=== PATIENT | male | born 1965 | race Caucasian/White ===

== ENCOUNTER 2019-07-03 06:30 | Emergency (ER) | payer BC ==
[2019-07-03] MEDS ORDERED: NS 0.9% 1000 ML** 1,000 ML IV ONE (06:46)
[2019-07-03] MEDS ORDERED: Morphine 4 MG/ML VIAL (1 ml) 4 MG/ML VIAL IV ONE ×3 (06:46→09:34)
[2019-07-03] MEDS ORDERED: Iodixanol* (CONTRAST) 320 MG/ML 100 ML SDV IV ONE (07:02)
[2019-07-03 07:14] LABS: ABS Basophils 0.1 10^3/ul (0-0.2); ABS Eosinophils 0.2 10^3/ul (0-0.6); ABS Lymphocytes 3.1 10^3/ul (1.0-4.8); ABS Monocytes 0.7 10^3/ul (0-0.8); ABS Neutrophils 3.5 10^3/ul (1.5-7.7); Eosinophil % 2.9 %; Hematocrit 44 % (42-52); Hemoglobin 15.2 g/dL (14.0-18.0); Lymphocyte % 41.1 %; Mean Corpuscular HGB Conc 35 g/dL (31-36); Mean Corpuscular Hemoglobin 31 pg (27-31); Mean Corpuscular Volume 89 fL (80-94); Mean Platelet Volume 8.1 fL (7.4-10.4); Nucleated Red Blood Cells % 0.1; Platelet Count 255 10^3/uL (150-450); Red Blood Count 4.94 10^6 /uL (4.18-5.48); Red Cell Distribution Width 13 % (10-15); White Blood Count 7.5 10^3/uL (3.5-10.8)
[2019-07-03 07:20] LABS: INR 0.93 (0.82-1.09)
[2019-07-03 07:25] LABS: Albumin 4.3 g/dL (3.2-5.2); BUN/Creatinine Ratio 13.4 (8-20); Calcium 8.9 mg/dL (8.6-10.3); EGFR African American 82.4 (>60); EGFR Non-African American 68.1 (>60); Globulin 2.1 g/dL (2-4); Total Bilirubin 0.3 mg/dL (0.2-1.0); Total Protein 6.4 g/dL (6.4-8.9)
--- NOTE | 2019-07-03 07:59 | ED ---
Adult Trauma - HPI Summary HPI Summary: This patient is a 54-year-old otherwise healthy male presenting to the ED after a fall from approximately 15 feet 30 minutes prior to arrival. [place]. Endorses pain only to the L shoulder on arrival. Friend is at bedside states he may have had LOC x 2 min. Patient does not recall getting into the tree stand or the drive here to the ED. Pt is acting appropirately at this time on arrival per friend. Denies pain to the head, neck, back, chest, abdomen or pelvis. Patient was ambulating well following the fall. Denies use of blood thinners. Hx of prolapsed valve. 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 Negative: SOB, Chest Pain, Cough, Hematuria, Abdominal Pain, Numbness/Weakness, Hoarseness, Dysphagia, Hemoptysis , Ecchymosis - Allergy/Home Medications Allergies/Adverse Reactions: Allergies Allergy/AdvReac Type Severity Reaction Status Date / Time No Known Allergies Allergy Verified 07/03/19 06:36 Home Medications: Home Medications NK [No Home Medications Reported] 07/03/19 [History Confirmed 07/03/19] PMH/Surg Hx/FS Hx/Imm Hx Previously Healthy: Yes - Immunization History Hx Pertussis Vaccination: No Immunizations Up to Date: Yes Infectious Disease History: No Infectious Disease History: Denies: Traveled Outside the [place] in Last 30 Days - Social History Occupation: Employed Full-time Lives: With Family Alcohol Use: None Hx Substance Use: No Substance Use Type: Reports: None Hx Tobacco Use: No Smoking Status (MU): Never Smoked Tobacco Review of Systems Negative: Fever, Chills, Fatigue, Skin Diaphoresis Negative: Palpitations, Chest Pain Negative: Shortness Of Breath, Cough Negative: Abdominal Pain, Vomiting, Diarrhea, Nausea Positive: no symptoms reported, see HPI Positive: Arthralgia - left shoulder pain Positive: Other - small abrasion above L eyebrow Negative: Headache, Weakness, Paresthesia, Numbness, Syncope, Slurred Speech Psychological: Normal All Other Systems Reviewed And Are Negative: Yes Physical Exam Triage Information Reviewed: Yes Vital Signs On Initial Exam: Initial Vitals Temp Pulse Resp BP Pulse Ox 96.2 F 63 18 180/102 100 07/03/19 06:32 07/03/19 06:32 07/03/19 06:32 07/03/19 06:32 07/03/19 06:32 Vital Signs Reviewed: Yes Appearance: Positive: Well-Appearing, Well-Nourished Skin: Positive: Warm, Skin Color Reflects Adequate Perfusion, Other - small abrasion above L eyebrow Head/Face: Positive: Normal Head/Face Inspection Eyes: Positive: EOMI, JOEY, Conjunctiva Clear Neck: Positive: Supple, Nontender, No Lymphadenopathy, Other: - s/p cervical collar removal - no pain noted on rotation, flexion and extension Respiratory/Lung Sounds: Positive: Clear to Auscultation, Breath Sounds Present Cardiovascular: Positive: RRR, Pulses are Symmetrical in both Upper and Lower Extremities Abdomen Description: Positive: Nontender, Soft. Negative: CVA Tenderness (R), CVA Tenderness (L) Musculoskeletal: Positive: Pain @ - left shoulder pain, acromion appears prominent and loss of normal rounded appearance of the shoulder. Slightly externally rotated. No numbness or tingling throughout ipsilateral arm and hand Neurological: Positive: Sensory/Motor Intact, Alert, Oriented to Person Place, Time, Speech Normal Psychiatric: Positive: Normal, Affect/Mood Appropriate AVPU Assessment: Alert Procedures - Sedation Patient Received Moderate/Deep Sedation with Procedure: No Diagnostics - Vital Signs Vital Signs Temp Pulse Resp BP Pulse Ox 07/03/19 07:27 66 22 176/101 99 07/03/19 07:22 79 31 188/104 99 07/03/19 07:21 78 10 98 07/03/19 06:52 18 07/03/19 06:49 64 20 178/106 99 07/03/19 06:44 62 100 07/03/19 06:32 96.2 F 63 18 180/102 100 - Laboratory Lab Results: Lab Results 07/03/19 07/03/19 07/03/19 Range/Units 06:51 06:51 06:51 WBC 7.5 (3.5-10.8) 10^3/uL RBC 4.94 (4.18-5.48) 10^6 /uL Hgb 15.2 (14.0-18.0) g/dL Hct 44 (42-52) % MCV 89 (80-94) fL MCH 31 (27-31) pg MCHC 35 (31-36) g/dL RDW 13 (10-15) % Plt Count 255 (150-450) 10^3/uL MPV 8.1 (7.4-10.4) fL Neut % (Auto) 46.4 % Lymph % (Auto) 41.1 % [place] % (Auto) 8.8 % Eos % (Auto) 2.9 % Baso % (Auto) 0.8 % Absolute Neuts (auto) 3.5 (1.5-7.7) 10^3/ul Absolute Lymphs (auto) 3.1 (1.0-4.8) 10^3/ul Absolute Monos (auto) 0.7 (0-0.8) 10^3/ul Absolute Eos (auto) 0.2 (0-0.6) 10^3/ul Absolute Basos (auto) 0.1 (0-0.2) 10^3/ul Absolute Nucleated RBC 0.0 10^3/ul Nucleated RBC % 0.1 INR (Anticoag Therapy) 0.93 (0.82-1.09) Sodium 136 (135-145) mmol/L Potassium Pending Chloride 102 (101-111) mmol/L Carbon Dioxide 27 (22-32) mmol/L Anion Gap Pending BUN 15 (6-24) mg/dL Creatinine 1.12 (0.67-1.17) mg/dL Est GFR ( Amer) 82.4 (>60) Est GFR (Non-Af Amer) 68.1 (>60) BUN/Creatinine Ratio 13.4 (8-20) Glucose 156 H (70-100) mg/dL Lactic Acid (0.5-2.0) mmol/L Calcium 8.9 (8.6-10.3) mg/dL Total Bilirubin 0.30 (0.2-1.0) mg/dL AST Pending ALT 24 (7-52) U/L Alkaline Phosphatase 36 (34-104) U/L Total Creatine Kinase 153 (10-223) U/L Troponin I Pending Total Protein 6.4 (6.4-8.9) g/dL Albumin 4.3 (3.2-5.2) g/dL Globulin 2.1 (2-4) g/dL Albumin/Globulin Ratio 2.0 (1-3) 07/03/19 Range/Units 06:51 WBC (3.5-10.8) 10^3/uL RBC (4.18-5.48) 10^6 /uL Hgb (14.0-18.0) g/dL Hct (42-52) % MCV (80-94) fL MCH (27-31) pg MCHC (31-36) g/dL RDW (10-15) % Plt Count (150-450) 10^3/uL MPV (7.4-10.4) fL Neut % (Auto) % Lymph % (Auto) % [place] % (Auto) % Eos % (Auto) % Baso % (Auto) % Absolute Neuts (auto) (1.5-7.7) 10^3/ul Absolute Lymphs (auto) (1.0-4.8) 10^3/ul Absolute Monos (auto) (0-0.8) 10^3/ul Absolute Eos (auto) (0-0.6) 10^3/ul Absolute Basos (auto) (0-0.2) 10^3/ul Absolute Nucleated RBC 10^3/ul Nucleated RBC % INR (Anticoag Therapy) (0.82-1.09) Sodium (135-145) mmol/L Potassium Chloride (101-111) mmol/L Carbon Dioxide (22-32) mmol/L Anion Gap BUN (6-24) mg/dL Creatinine (0.67-1.17) mg/dL Est GFR ( Amer) (>60) Est GFR (Non-Af Amer) (>60) BUN/Creatinine Ratio (8-20) Glucose (70-100) mg/dL Lactic Acid 2.6 H* (0.5-2.0) mmol/L Calcium (8.6-10.3) mg/dL Total Bilirubin (0.2-1.0) mg/dL AST ALT (7-52) U/L Alkaline Phosphatase (34-104) U/L Total Creatine Kinase (10-223) U/L Troponin I Total Protein (6.4-8.9) g/dL Albumin (3.2-5.2) g/dL Globulin (2-4) g/dL Albumin/Globulin Ratio (1-3) Result Diagrams: 07/03/19 06:51 07/03/19 06:51 Lab Statement: Any lab studies that have been ordered have been reviewed, and results considered in the medical decision making process. Adult Trauma Course/Dx - Course Course Of Treatment: During his course of treatment, the patient is evaluated for trauma. C-collar placed in triage and pt brought back to trauma room. Alert but not oriented. On arrival to the ED, FAST exam was performed. This was negative for free fluid. Xrays of the L shoulder, chest obtained. CT brain , C-spine and Chest/abd/pelvis with IV contrast. On physical examination, pt is in mild acute distress to the L shoulder rating it a 5/10. Unable to flex and extend, abduct or adduct at the shoulder. No pain to deep pressure/ palpation of the spine, no step off noted, no contusions, ecchymosis. 1 small abrasion above the L eyebrow. Pt ambulating well. Denies pain to the lower extremities. Flexion and extension without limitations. No pain to deep palpation of the chest, abd, pelvis. Lungs CTA, RRR. Pt given morphine and fluids. While in CT, trauma center was called for transfer. Troponin 0.06 repeated at 0.01. Again at 0.00. CT brain: IMPRESSION: #. No CT evidence for traumatic brain injury. CT cervical spine: IMPRESSION: #. On the field scout image there is evidence for LEFT shoulder dislocation. #. Negative for cervical spine fracture or facet subluxation. CT chest/abd/pelvis: ABDOMEN PELVIS IMPRESSION: #. No CT evidence for traumatic abdominal pelvic visceral injury or osseous fracture. Chest xray and L shoulder xray obtained: hill sachs with dislocation. EKG shows rate of 62 NSR. Pt given another 4mg morphine and 4mg zofran. Pt tolerating discomfort well. Alert and oriented at this time. Discussed with Dr. Eli at [facility] who accepts pt for transfer. - Diagnoses Differential Diagnosis/HQI/PQRI: Positive: Abrasion(s), Contusion(s), Fracture, Dislocation Provider Diagnoses: Trauma - Physician Notifications Admit/Transition Orders Completed By ED Provider: Yes Reason For Transfer: Specialty or service not available at [facility]. - Critical Care Time Critical Care Time: 30-74 min Discharge ED - Sign-Out/Discharge Documenting (check all that apply): Patient Departure - Discharge Plan Condition: Good Disposition: TRANS HIGHER LVL OF CARE FAC Referrals: No Primary Care Phys,NOPCP [Primary Care Provider] - - Billing Disposition and Condition Condition: GOOD Disposition: Trans Higher Lvl of Care Fac
[2019-07-03 08:11] LABS: Urine Appearance Clear; Urine Bacteria Absent (Absent); Urine Bilirubin Negative (Negative); Urine Blood 1+ (Negative); Urine Color Straw; Urine Glucose 1+(50 mg/dL) (Negative); Urine Ketones Negative (Negative); Urine Nitrite Negative (Negative); Urine Protein Negative (Negative); Urine Red Blood Cell Trace(0-2/hpf) (Absent); Urine Urobilinogen Negative (Negative); Urine White Blood Cell Trace(0-5/hpf) (Absent)
[2019-07-03] MEDS ORDERED: Ondansetron INJ* 2 MG/ML VIAL IV ONE ×2 (08:12→09:34)
[2019-07-03 08:20] LABS: Troponin I 0.01 ng/mL (<0.04)
[2019-07-03 08:39] LABS: Potassium 3.9 mmol/L (3.5-5.0)
[2019-07-03 09:54] VITALS: BP 162/94
== END 2019-07-03 09:53 | disposition short-term general hospital (02) ==
LOC: ED 06:30
DX: S43.015A Anterior dislocation of left humerus, initial encounter (principal); S42.292A Other displaced fracture of upper end of left humerus, initial encounter for closed fracture; W14.XXXA Fall from tree, initial encounter; Y92.9 Unspecified place or not applicable
CPT/HCPCS: 36415; 70450; 71045; 71260; 72125; 74177; 80053; 81003; 81015; 82550; 83605; 84484; 85025; 85610; 87086; 93005; 96374; 96375; 96376; 99285; J2270; J2405; Q9967